=== PATIENT | male | born 1970 | race Two or more races ===

== ENCOUNTER 2024-12-21 05:55 | Emergency (ER) | payer MEDICAID, OTHER ==
[~2024-12-21] VITALS: Ht 167.6 cm; Wt 111.1 kg
[2024-12-21 06:30] VITALS: PULSE 70; RESP 17; O2SAT 98
[2024-12-21 06:39] LABS: Urine Bacteria None Seen /hpf (None Seen)
[2024-12-21 07:04] LABS: Urine Blood Negative /uL (Negative); Urine Clarity Turbid (Clear); Urine Color Colorless (Yellow); Urine Mucus FEW (None Seen); Urine Protein, UAD Negative (Negative); Urine Specific Gravity 1.016 (1.001-1.035); Urine Squamous Epithelial Cell FEW /hpf (<5); Urine Urobilinogen Normal (Negative); Urine WBC 1 /HPF (0-3)
[2024-12-21] MEDS: METOPROLOL TARTRATE 1MG/1ML-5ML VIAL IV ONE (07:08)
[2024-12-21] MEDS: SODIUM CHLORIDE 0.9% 1,000 ML IV ONE (07:08)
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
--- NOTE | 2024-12-21 07:39 | DVH ---
CLINICAL INFORMATION: 54 years old, Male; chest pain. TECHNIQUE: Frontal and lateral chest radiographs were obtained. COMPARISON: None FINDINGS: Lungs: Clear. Cardiac: Heart size is within normal limits. Pulmonary vasculature: Unremarkable Mediastinum/daniel: Within normal limits. Bones: Increased thoracic kyphosis. Multilevel degenerative disc disease in the thoracic spine and vi sualized portions of the lumbar spine with associated moderate disc space narrowing, endplate scleros is, and endplate spurring. Chronic mild compression deformities are seen at the T11, T12, and L1 vert ebral bodies. Other: No other significant finding. IMPRESSION: 1. No evidence of acute disease in the chest. 2. Nonacute findings as described above.
[2024-12-21 07:50] VITALS: PULSE 59; RESP 19; TEMP 97.7; O2SAT 98
[2024-12-21 07:57] LABS: Basophils # (auto) 0 10 ^3/uL (0-0.2); Basophils % (auto) 0.7 % (0.0-2.0); Eosinophils # (auto) 0.1 10 ^3/uL (0-0.8); Eosinophils % (auto) 1.1 % (0.0-7.0); Hematocrit 47.7 % (41.0-53.0); Hemoglobin 16.1 g/dL (13.5-17.5); Lymphocytes # (auto) 1.8 10 ^3/uL (0.4-5.4); Lymphocytes % (auto) 26.6 % (10.0-50.0); Mean Corpuscular Hgb Conc. 33.8 g/dL (32.0-36.0); Mean Corpuscular Volume 94.6 fL (80.0-100.0); Monocytes # (auto) 0.5 10 ^3/uL (0-1.3); Monocytes % (auto) 7.3 % (0.0-12.0); Neutrophils # (auto) 4.3 10 ^3/uL (1.6-8.6); Neutrophils % (auto) 64.3 % (37.0-80.0); Nucleated Red Blood Cells % 0.1 %; Platelet Count (auto) 173 10^3/uL (140-450); Red Blood Cells 5.04 10^6/uL (4.5-5.90); White Blood Cell 6.7 10^3/uL (4.4-10.8)
[2024-12-21 08:17] LABS: Alanine Aminotransferase 18 U/L (7-40); Albumin 4.2 g/dL (3.2-4.8); Alkaline Phosphatase 98 U/L (46-116); Anion Gap 14 (5-15); Aspartate Aminotransferase 20 U/L (13-40); BUN/Creatinine Ratio 12.5 (10.0-20.0); Carbon Dioxide 21 mmol/L (20-31); Chloride 105 mmol/L (98-107); Magnesium 2.1 mg/dL (1.6-2.6); Potassium 3.6 mmol/L (3.5-5.1); Sodium 140 mmol/L (136-145)
[2024-12-21 08:18] LABS: Bilirubin, Total 1.1 mg/dL (0.2-1.0); Blood Urea Nitrogen 8 mg/dL (9-23); Calcium 10.5 mg/dL (8.7-10.4); Glucose 107 mg/dL (74-106)
[2024-12-21] MEDS ORDERED: IBUP-1454 PO (09:08)
[2024-12-21 09:50] VITALS: BP 162/85; PULSE 85; RESP 16; O2SAT 97
--- NOTE | 2024-12-27 07:11 | ECG ---
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
--- NOTE | 2024-12-27 07:11 | ECG ---
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
== END 2024-12-21 10:02 | disposition home or self-care (01) ==
LOC: EDBD 05:55 → ER 05:55
DX: F41.1 Generalized anxiety disorder (principal); R07.89 Other chest pain; F43.0 Acute stress reaction; Z88.6 Allergy status to analgesic agent; Z79.899 Other long term (current) drug therapy
CPT/HCPCS: 36415; 71046; 80053; 81001; 83735; 84484; 85025; 93005; 96361; 96374; 99285; J7030